=== PATIENT | male | born 1950 | race African-American/Black ===

== ENCOUNTER → 2017-04-20 | Outpatient (CLI) | payer BC ==
[2017-04-05 15:07] VITALS: BP 135/70
[~2017-04-20] MED LIST: ASPI-482 PO; ASPI325T11 PO; ATOR40TA59 PO; FOLI1TAB39 PO; HYDR-2758 PO; LOSA25TA4 PO; METO25TA4 PO
--- NOTE | 2017-04-20 14:05 | RAD ---
04/20/2017: History: Postop CABG Comparison is made to a study from 04/04/2017. The heart is at the upper limits of normal in size. The pulmonary vascularity is normal. There is a small amount of residual pleural fluid on the right. No pulmonary infiltrate is seen. There is a calcified granuloma in the right base. There are mild spurs in the thoracic spine. IMPRESSION: 1. Borderline cardiomegaly. 2. Small amount of residual right-sided pleural fluid. 3. No new abnormality is detected.
== END | disposition home or self-care (01) ==
LOC: RAD 12:07
PROVIDERS: ATTEND Thoracic Surgery (Cardiothoracic Vascular Surgery)
DX: Z95.1 Presence of aortocoronary bypass graft (principal); I51.7 Cardiomegaly
CPT/HCPCS: 71020

== ENCOUNTER 2017-10-10 00:19 | Emergency (ER) | payer OTHER ==
[~2017-10-10] VITALS: Ht 177.8 cm; Wt 91.2 kg
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
[2017-10-10 00:59] LABS: BASO # 0.1 x10^3/uL (0.0-0.2); BASO % 1 % (0-3); EOS % 2 % (0-3); HEMATOCRIT 40.4 % (39.0-53.0); HEMOGLOBIN 13.4 g/dL (13.0-17.5); LYMPH # 2.3 x10^3/uL (1.0-4.8); LYMPH % 27 % (24-48); MEAN CORPUSCULAR HEMOGLOBIN 29 pg (25-35); MEAN CORPUSCULAR HGB CONC 33 g/dL (31-37); MEAN CORPUSCULAR VOLUME 87 fL (79-100); MONO % 10 % (0-9); NEUT % 60 % (31-73); PLATELET COUNT 445 x10^3/uL (140-400); RED BLOOD COUNT 4.66 x10^6/uL (4.30-5.70); WHITE BLOOD COUNT 8.5 x10^3/uL (4.0-11.0)
[2017-10-10] MEDS ORDERED: ONDANSETRON PF 4 MG/2 ML VIAL. IV ONE (01:00)
[2017-10-10] MEDS ORDERED: IV NORMAL SALINE 1000ML BAG 1,000 ML IV SCH (01:00)
[2017-10-10 01:14] LABS: CALCIUM 9.1 mg/dL (8.5-10.1); CREATININE 1.2 mg/dL (0.7-1.3); GFR 73.5; POTASSIUM 3.6 mmol/L (3.5-5.1)
[2017-10-10] MEDS ORDERED: CONTRAST GIVEN MC PRN (01:15)
[2017-10-10] MEDS ORDERED: IOHEXOL 300 MG/ML 100ML VIAL. IV ONE (01:15)
[2017-10-10 01:17] LABS: INR 1.1 (0.8-1.1); PROTHROMBIN TIME PATIENT 13.5 SEC (11.7-14.0)
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
[2017-10-10 03:35] LABS: BILIRUBIN,URINE NEGATIVE (NEG); GLUCOSE,URINE NEGATIVE (NEG); NITRITE,URINE NEGATIVE (NEG); PH,URINE 7.5; PROTEIN,URINE NEGATIVE (NEG-TRACE)
[2017-10-10 03:41] LABS: BARBITURATES NEG (NEG); BENZODIAZEPINES NEG (NEG); CANNABINOIDS NEG (NEG); COCAINE NEG (NEG); METHADONE NEG (NEG); OPIATES NEG (NEG); PHENCYCLIDINE NEG (NEG)
[2017-10-10 03:42] LABS: BACTERIA,URINE 0 /HPF (0-FEW); SQUAMOUS EPITHELIAL CELL,UR FEW /LPF; WBC,URINE OCC /HPF (0-4)
[2017-10-10 04:14] VITALS: BP 175/79
== END 2017-10-10 04:24 | disposition home or self-care (01) ==
LOC: ER 00:19
DX: M54.2 Cervicalgia (principal); R51 Headache; R10.12 Left upper quadrant pain; I25.10 Atherosclerotic heart disease of native coronary artery without angina pectoris; J43.9 Emphysema, unspecified; I25.2 Old myocardial infarction; Z88.4 Allergy status to anesthetic agent; V43.52XA Car driver injured in collision with other type car in traffic accident, initial encounter; Y93.I9 Activity, other involving external motion; Y92.410 Unspecified street and highway as the place of occurrence of the external cause; Y99.8 Other external cause status
CPT/HCPCS: 36415; 70450; 71260; 72125; 74177; 80048; 80307; 81001; 83605; 83690; 85025; 85610; 85730; 96361; 96374; 99285; J2405; J7030; G0479

== ENCOUNTER → 2018-05-01 | Outpatient (CLI) | payer OTHER | END | disposition home or self-care (01) | LOC: RAD 13:01 | DX: M51.36 Other intervertebral disc degeneration, lumbar region (principal); M43.17 Spondylolisthesis, lumbosacral region; M12.88 Other specific arthropathies, not elsewhere classified, other specified site | CPT/HCPCS: 72100 ==

== ENCOUNTER → 2019-02-06 | Outpatient (CLI) | payer MEDICARE ==
[~2019-02-06] MED LIST changes: -HYDR-2758 PO; +HYDR-2761 PO; -LOSA25TA4 PO; +LOSA25TA54 PO
--- NOTE | 2019-02-06 12:31 | CARD ---
MR#: [id number] Date of Study: 02/06/2019 Ordering Physician: YOLY WEIR, Referring Physician: YOLY WEIR, Tech: Lily Porter APPROVED REPORT EXAM: Two-dimensional and M-mode echocardiogram with Doppler and color Doppler. Other Information Quality : GoodHR: 68bpm INDICATION CAD RISK FACTORS Hypertension Hyperlipidemia Previous smoker 2D DIMENSIONS RVDd4.1 (2.9-3.5cm)Left Atrium(2D)3.7 (1.6-4.0cm) IVSd1.0 (0.7-1.1cm)Aortic Root(2D)3.1 (2.0-3.7cm) LVDd4.6 (3.9-5.9cm)LVOT Diameter2.0 (1.8-2.4cm) PWd0.9 (0.7-1.1cm)LVDs3.0 (2.5-4.0cm) FS (%) 35.1 %SV64.1 ml Aortic Valve AoV Peak Arnulfo.105.1cm/sAoV VTI22.5cm AO Peak GR.4.4mmHgLVOT Peak Arnulfo.75.3cm/s LVOT VTI 18.59cmAO Mean GR.2mmHg FUAD (VMAX)1.94iv9TQQ (VTI)2.68cm2 Mitral Valve MV E Hdzvzemg60.5cm/sMV DECEL MIIS843cg MV A Jxdpxoax92.3cm/sMV NHB75te E/A Ratio1.2MVA (PHT)4.58cm2 TDI E/Lateral E'10.1E/Medial E'10.9 Pulmonary Valve PV Peak Rmjgtuyx83.8cm/sPV Peak Grad.2mmHg Tricuspid Valve TR P. Siabuurx998oh/sRAP OKYYFXRT6xaWa TR Peak Gr.60fhFnVFWO34zyEn Pulmonary Vein S1 Atogwlzn40.5cm/sD2 Cdgsxgvs39.9cm/s PVa lwnycbas37stqs LEFT VENTRICLE The left ventricle is normal size. There is normal left ventricular wall thickness. The left ventricu lar systolic function is normal and the ejection fraction is within normal range. The Ejection Fracti on is 55-60%. There is normal LV segmental wall motion. Transmitral Doppler flow pattern is Grade II- pseudonormal filling dynamics. RIGHT VENTRICLE The right ventricle is mildly dilated. There is normal right ventricular wall thickness. The right ve ntricular systolic function is normal. ATRIA The left atrium size is normal. The right atrium is mildly dilated. The interatrial septum is intact with no evidence for an atrial septal defect or patent foramen ovale as noted on 2-D or Doppler imagi ng. AORTIC VALVE The aortic valve is normal in structure and function. Doppler and Color Flow revealed trace aortic re gurgitation. There is no significant aortic valvular stenosis. MITRAL VALVE The mitral valve is thickened but opens well. There is no evidence of mitral valve prolapse. There is no mitral valve stenosis. Doppler and Color-flow revealed trace mitral regurgitation. TRICUSPID VALVE The tricuspid valve is normal in structure and function. Doppler and Color Flow revealed trace to mil d tricuspid regurgitation. There is no tricuspid valve stenosis. PULMONIC VALVE The pulmonic valve is not well visualized. Doppler and Color Flow revealed no pulmonic valvular regur gitation. GREAT VESSELS The aortic root is normal in size. The IVC is normal in size and collapses >50% with inspiration. PERICARDIAL EFFUSION There is no evidence of significant pericardial effusion. Critical Notification Critical Value: No <Conclusion> The left ventricle is normal size. The left ventricular systolic function is normal and the ejection fraction is within normal range. The Ejection Fraction is 55-60%. There is no significant aortic valvular stenosis. Doppler and Color Flow revealed trace aortic regurgitation. Doppler and Color-flow revealed trace mitral regurgitation. Doppler and Color Flow revealed trace to mild tricuspid regurgitation. Signed by : Yoly Weir MD Electronically Approved : 02/06/2019 12:31:04
== END | disposition home or self-care (01) ==
LOC: ECHO 09:41
PROVIDERS: ATTEND Internal Medicine Cardiovascular Disease
DX: I25.10 Atherosclerotic heart disease of native coronary artery without angina pectoris (principal); I10 Essential (primary) hypertension; E78.5 Hyperlipidemia, unspecified; Z87.891 Personal history of nicotine dependence
CPT/HCPCS: 93306

== ENCOUNTER 2019-08-29 23:43 | Emergency (ER) | payer MEDICARE ==
[~2019-08-29] VITALS: Ht 177.8 cm; Wt 81.6 kg
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
[2019-08-30 00:25] VITALS: BP 153/65
[2019-08-30] MEDS ORDERED: METOPROLOL SUCC 24HR ER 25 MG TAB.ER.24H. PO ONE (00:30)
== END 2019-08-30 00:25 | disposition home or self-care (01) ==
LOC: ER 23:43
DX: I25.10 Atherosclerotic heart disease of native coronary artery without angina pectoris (principal); I25.2 Old myocardial infarction; Z76.0 Encounter for issue of repeat prescription; Z88.6 Allergy status to analgesic agent
CPT/HCPCS: 99282

== ENCOUNTER → 2021-07-06 | Outpatient (CLI) | payer MEDICARE ==
--- NOTE | 2021-07-06 17:00 | CARD ---
MR#: [id number] Date of Study: 07/06/2021 Ordering Physician: KYLEE GRISSOM, Referring Physician: KYLEE GRISSOM, Tech: Lily Porter [facility] APPROVED REPORT EXAM: Two-dimensional and M-mode echocardiogram with Doppler and color Doppler. Other Information Quality : AverageHR: 62bpm INDICATION Dyspnea Surgery/Intervention CABG: Date: 2015 Site: [place] 2D DIMENSIONS RVDd3.7 (2.9-3.5cm)Left Atrium(2D)3.6 (1.6-4.0cm) IVSd1.1 (0.7-1.1cm)Aortic Root(2D)3.0 (2.0-3.7cm) LVDd5.2 (3.9-5.9cm)LVOT Diameter2.1 (1.8-2.4cm) PWd1.1 (0.7-1.1cm)LVDs3.1 (2.5-4.0cm) FS (%) 39.6 %SV90.8 ml LVEF(%)69.8 (>50%) Aortic Valve AoV Peak Arnulfo.117.9cm/sAoV VTI25.1cm AO Peak GR.5.6mmHgLVOT Peak Arnulfo.93.4cm/s LVOT VTI 20.45cmAO Mean GR.3mmHg FUAD (VMAX)2.58kz4TVW (VTI)2.76cm2 Mitral Valve MV E Osucagnj52.1cm/sMV DECEL OUOO135od MV A Offeapzm71.8cm/sMV E Mean Gr.2mmHg MV WIN24cjZ/A Ratio1.2 MVA (PHT)3.66cm2 TDI E/Lateral E'9.2E/Medial E'8.6 Pulmonary Valve PV Peak Lcfvhhsk18.2cm/sPV Peak Grad.2mmHg Tricuspid Valve TR P. Esppvzmq722rb/sRAP [id number] TR Peak Gr.18lkUgCIYN76ywZw Pulmonary Vein S1 Sbjjkftm70.2cm/sD2 Mjscohfm52.2cm/s PVa [id number] LEFT VENTRICLE The left ventricle is normal size. There is mild concentric left ventricular hypertrophy. The left ve ntricular systolic function is normal. The Ejection Fraction is 55-60%. There is normal LV segmental wall motion. Transmitral Doppler flow pattern is Grade II-pseudonormal filling dynamics. RIGHT VENTRICLE The right ventricle is mildly dilated. There is normal right ventricular wall thickness. The right ve ntricular systolic function is normal. ATRIA The left atrium size is normal. The right atrium is mildly dilated. The interatrial septum is intact with no evidence for an atrial septal defect or patent foramen ovale as noted on 2-D or Doppler imagi ng. AORTIC VALVE The aortic valve is normal in structure and function. Doppler and Color Flow revealed trace aortic re gurgitation. There is no significant aortic valvular stenosis. Calculated aortic valve area is 2.94 c m2 with maximum pressure gradient of 7 mmHg and mean pressure gradient of 4 mmHg. MITRAL VALVE The mitral valve is normal in structure and function. There is no evidence of mitral valve prolapse. There is no mitral valve stenosis. Doppler and Color-flow revealed trace to mild mitral regurgitation . TRICUSPID VALVE The tricuspid valve is normal in structure and function. Doppler and Color Flow revealed mild tricusp id regurgitation with an estimated PAP of 40 mmHg. There is no tricuspid valve stenosis. PULMONIC VALVE The pulmonic valve is not well visualized. Doppler and Color Flow revealed trace pulmonic valvular re gurgitation. GREAT VESSELS The aortic root is normal in size. The IVC is normal in size and collapses >50% with inspiration. PERICARDIAL EFFUSION There is no evidence of significant pericardial effusion. Critical Notification Critical Value: No <Conclusion> The left ventricular systolic function is normal. The Ejection Fraction is 55-60%. There is normal LV segmental wall motion. Trace to mild mitral regurgitation. Mild tricuspid regurgitation with an estimated PAP of 40 mmHg. There is no evidence of significant pericardial effusion. Signed by : Kylee Grissom, Electronically Approved : 07/06/2021 17:00:17
== END ==
LOC: ECHO 14:40
PROVIDERS: ATTEND Internal Medicine Cardiovascular Disease
DX: I08.1 Rheumatic disorders of both mitral and tricuspid valves (principal); R06.02 Shortness of breath
CPT/HCPCS: 93306